=== PATIENT | female | born 1975 | race American Indian/Alaskan Native ===

== ENCOUNTER 2020-07-12 17:16 | Emergency (ER) | payer OTHER ==
[2020-07-12 17:24] VITALS: BP 169/91
[2020-07-12] MEDS ORDERED: dexAMETHasone 20 MG/5 ML VIAL IV ONE (17:30)
[2020-07-12] MEDS ORDERED: HYDROcodone/ACETAMINOPHEN 10-325MG TAB PO ONE (17:30)
--- NOTE | 2020-07-12 18:11 | Emergency Department Report ---
Upper Extremity - [facility] Chief Complaint: Extremity Injury, Upper Stated Complaint: RT SHOULDER/RT ARM PAIN Time Seen by Provider: 07/12/20 17:29 Upper Extremity: Left Shoulder, Left Wrist, Right Shoulder, Right Wrist Occurred When: Today Severity: severe Symptoms: Yes Pain with Movement, No Deformity, No Limited Range of Movement, No Numbness, No Weakness, No Swelling, No Bruising/Ecchymosis, No Laceration or Abrasion Other History: 44-year-old -Beninese female presents to the emergency room complaining of bilateral carpal tunnel wrist pain and bilateral shoulder pain stating that her carpal tunnel is flaring up. Patient states that it started getting worse today. Patient states she has been taking ibuprofen last dose at 11 AM. Patient denies any other past medical history except carpal tunnel syndrome. Patient does report a surgical history of umbilical hernia repair. Patient denies any current medications on a daily basis no known drug allergies. States pain is worse with movement. 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 ED Review of Systems ROS: Stated complaint: RT SHOULDER/RT ARM PAIN Other details as noted in HPI ED Past Medical Hx - Past Medical History Previous Medical History?: Yes Additional medical history: Alfredito carpel tunnel syndrome - Surgical History Past Surgical History?: Yes Additional Surgical History: Umbilical hernia repair - Social History Smoking Status: Never Smoker Substance Use Type: Alcohol - Medications Home Medications: Home Medications Medication Instructions Recorded Confirmed Last Taken Type Ibuprofen [Motrin 800 MG tab] 800 mg PO Q8HR PRN #30 tablet 07/12/20 Unknown Rx predniSONE [Deltasone] 40 mg PO QDAY #10 tab 07/12/20 Unknown Rx Upper Extremity Exam - Exam General: Vital signs noted. No distress. Alert and acting appropriately. Head and Torso: No HEENT Abnormality, No Neck Tenderness, No Chest/Lungs Abnormality, No Abdominal Tenderness, No Back Tenderness Shoulder Exam: Yes Shoulder Tenderness, No Clavicle Tenderness, No Normal Range of Motion in Shoulder, No Shoulder Deformity, No AC Joint Tenderness Arm Exam: No Arm/Humerus Tenderness, No Arm Deformity Elbow: No Elbow Tenderness, No Normal Range of Motion in Elbow, No Elbow Deformity Forearm: Yes Forearm Tenderness, No Forearm Deformity, No Pain with Pronation, No Pain with Supination Wrist: Yes Wrist Tenderness, Yes Normal ROM in Wrist, No Wrist Deformity, No Snuffbox Tenderness, No Pain with Axial Thumb Compression Hand: Yes Hand Tenderness, Yes Normal ROM in Digit(s), No Hand Deformity, No Digit Tenderness, No Digit(s) Deformity CMS Exam: No Broken Skin, No Normal Distal Pulses, No Normal Capillary Refill, No Normal Distal Sensation ED Course Vital Signs 07/12/20 07/12/20 07/12/20 17:21 17:45 17:56 Temperature 98.0 F Pulse Rate 67 Respiratory 20 18 18 Rate Blood Pressure 169/91 O2 Sat by Pulse 100 Oximetry ED Medical Decision Making - Medical Decision Making 44-year-old -Beninese female presents to the emergency room complaining of bilateral carpal tunnel wrist pain and bilateral shoulder pain stating that her carpal tunnel is flaring up. Patient states that it started getting worse today. Patient states she has been taking ibuprofen last dose at 11 AM. Patient denies any other past medical history except carpal tunnel syndrome. Patient does report a surgical history of umbilical hernia repair. Patient denies any current medications on a daily basis no known drug allergies. States pain is worse with movement. 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 But sugar was checked was 96. Patient is given a shot of dexamethasone and a [place] 10/3 25 mg for pain management. Patient will be referred to a hand specialist. Critical care attestation.: If time is entered above; I have spent that time in minutes in the direct care of this critically ill patient, excluding procedure time. ED Disposition Clinical Impression: Shoulder pain, bilateral, Carpal tunnel syndrome on both sides Disposition: DC-01 TO HOME OR SELFCARE Is pt being admited?: No Does the pt Need Aspirin: No Condition: Stable Instructions: Preventing Carpal Tunnel Syndrome, Shoulder Pain, [id number] Additional Instructions: Take steroids as prescribed take pain medication as needed follow-up with a hand specialist. Prescriptions: predniSONE [Deltasone] 40 mg PO QDAY #10 tab Ibuprofen [Motrin 800 MG tab] 800 mg PO Q8HR PRN #30 tablet PRN Reason: Pain , Severe (7-10) Referrals: [facility] [Provider Group] - 3-5 Days Forms: Work/School Release Form(ED)
== END 2020-07-12 19:15 | disposition home or self-care (01) ==
LOC: ED 17:16
DX: G56.03 Carpal tunnel syndrome, bilateral upper limbs (principal); Z79.1 Long term (current) use of non-steroidal anti-inflammatories (NSAID); Z79.899 Other long term (current) drug therapy
CPT/HCPCS: 82962; 96374; 99283; J1100

== ENCOUNTER 2021-03-11 19:30 | Emergency (ER) | payer OTHER ==
[2021-03-11 19:57] VITALS: BP 141/75
[2021-03-11] MEDS ORDERED: KETOROLAC 30 MG/1 ML INJ IM ONE (20:17)
--- NOTE | 2021-03-11 20:20 | Emergency Department Report ---
<EARNEST YLNN - Last Filed: 03/11/21 22:05> ED General Adult HPI - General Chief complaint: Extremity Injury, Lower Stated complaint: FOOT SWOLLEN Time Seen by Provider: 03/11/21 20:04 - Related Data Previous Rx's Medication Instructions Recorded Last Taken Type Ibuprofen [Motrin 800 MG tab] 800 mg PO Q8HR PRN #30 tablet 07/12/20 Unknown Rx predniSONE [Deltasone] 40 mg PO QDAY #10 tab 07/12/20 Unknown Rx Naproxen 500 mg PO BID #20 tablet 03/11/21 Unknown Rx Ondansetron [Zofran Odt] 4 mg PO Q4H #20 tab.rapdis 03/11/21 Unknown Rx oxyCODONE /ACETAMINOPHEN [Percocet 1 tab PO Q4HR #10 tab 03/11/21 Unknown Rx 5/325] Allergies Allergy/AdvReac Type Severity Reaction Status Date / Time No Known Allergies Allergy Unverified 07/12/20 17:21 ED Past Medical Hx - Medications Home Medications: Home Medications Medication Instructions Recorded Confirmed Last Taken Type Ibuprofen [Motrin 800 MG tab] 800 mg PO Q8HR PRN #30 tablet 07/12/20 Unknown Rx predniSONE [Deltasone] 40 mg PO QDAY #10 tab 07/12/20 Unknown Rx Naproxen 500 mg PO BID #20 tablet 03/11/21 Unknown Rx Ondansetron [Zofran Odt] 4 mg PO Q4H #20 tab.rapdis 03/11/21 Unknown Rx oxyCODONE /ACETAMINOPHEN [Percocet 1 tab PO Q4HR #10 tab 03/11/21 Unknown Rx 5/325] ED Course - Consultations Consultation #1: 03/11/21 I did discuss case with Dr. Carbone orthopedics surgeon who reviewed x-rays. Recommends posterior splint and nonweightbearing. Outpatient follow-up advised ED Disposition Clinical Impression: Foot fracture, left Qualifiers: Encounter type: initial encounter Fracture type: closed Qualified Code(s): S92.902A - Unspecified fracture of left foot, initial encounter for closed fracture Disposition: 01 HOME / SELF CARE / HOMELESS Condition: Stable Instructions: Lisfranc Injury, Metatarsal Fracture Additional Instructions: Take Naprosyn twice daily with food as needed for pain. If this medication is not sufficient in controlling your pain, take Percocet with food as directed. Do not drive or operate machinery while taking this medication. Do not consume alcohol taking this medication. Take Zofran as needed for nausea. Wear splint as directed. Use crutches as needed. Keep left foot elevated as often as possible to reduce swelling. Follow-up with Dr. Carbone, orthopedics, this week. Call tomorrow to schedule an appointment. See referral information below. Bring a copy of today's x-ray results with you to your follow-up appointment. Return to the emergency department immediately for new or worsening symptoms. Specifically, return to the emergency department immediately for worsening pain, numbness, tingling, skin color changes, swelling, or any other concerns. Prescriptions: Naproxen 500 mg PO BID #20 tablet oxyCODONE /ACETAMINOPHEN [Percocet 5/325] 1 tab PO Q4HR #10 tab Ondansetron [Zofran Odt] 4 mg PO Q4H #20 tab.rapdis Referrals: JOSIANE CARBONE MD [Staff Physician] - 3-5 Days <NORMAN ELIAS - Last Filed: 03/11/21 22:47> ED General Adult HPI - General Source: patient Mode of arrival: Wheelchair Limitations: No Limitations - History of Present Illness Initial comments: 45-year-old female patient presents to the emergency department with complaints of traumatic left foot pain starting today. Patient states that she was walking through a door when she accidentally tripped over a wooden threshold and "heard her foot crack." Pain is worse with weightbearing. No history of prior injuries to the left foot. No other injuries. Denies paresthesias, numbness, weakness, ankle pain, knee pain, hip pain. Denies other complaints at this time. ED Review of Systems ROS: Stated complaint: FOOT SWOLLEN Other details as noted in HPI Other: CARDIOVASCULAR: Negative for chest pain. PULMONARY: Negative for dyspnea. GASTROINTESTINAL: Negative for abdominal pain. MUSCULOSKELETAL: Positive for foot pain. NEUROLOGICAL: Negative for headache. INTEGUMENTARY: Negative for ecchymosis. ED Past Medical Hx - Past Medical History Previous Medical History?: Yes Additional medical history: Alfredito carpel tunnel syndrome - Surgical History Past Surgical History?: Yes Additional Surgical History: Umbilical hernia repair - Social History Smoking Status: Never Smoker Substance Use Type: Alcohol ED Physical Exam - General Limitations: No Limitations - Other Other exam information: General: Awake, appropriately interactive, no acute distress. Neck: Supple. Full range of motion intact. Cardiovascular: Normal peripheral perfusion. Pulmonary: No respiratory distress. Patient is speaking normally without use of accessory muscles. Skin: No apparent rashes or lesions. Neurological: No facial asymmetry. Speech is clear. Follows commands. Patient is alert and oriented. Musculoskeletal: Diffuse tenderness to palpation across the dorsum of the left foot with significant soft tissue swelling. Painful range of motion in all directions. No plantar ecchymosis. [place] test is negative. No malleolar tenderness. Distal neurovascular and motor/sensory function intact Psych: Cooperative. Appropriate mood and affect. ED Course Vital Signs 03/11/21 19:55 Temperature 97.9 F Pulse Rate 70 Respiratory 18 Rate Blood Pressure 141/75 O2 Sat by Pulse 100 Oximetry ED Medical Decision Making - Radiology Data [facility] [address] [place] [address] XRay Report Signed Patient: SEPIDEH CONROY R#: [id number] : 1975 Acct:[id number] Age/Sex: 45 / F ADM Date: 03/11/21 Loc: ED Attending Dr: Ordering Physician: JODEE DODSON Date of Service: 03/11/21 Procedure(s): XR foot 3+V LT Accession Number(s): [id number] cc: JODEE DODSON Fluoro Time In Minutes: Left foot 3 views INDICATION: Left foot pain following injury IMPRESSION: Multiple fractures identified involving the base of the second toe metatarsal with moderate displacement. There are also fractures identified involving the base of the third and fourth metatarsals. Underlying Lisfranc ligament is injury cannot be excluded. Signer Name: Munir Yoder MD Signed: 03/11/2021 8:43 PM Workstation Name: [id number] Transcribed By: BC Dictated By: Munir Yoder MD Electronically Authenticated By: Munir Yoder MD Signed Date/Time: 03/11/212042 DD/ 41 TD/TT: - Medical Decision Making Differential diagnosis including but not limited to: sprain, strain, fracture, contusion, dislocation, Achilles tendon injury On reevaluation, patient remains stable. Pain is controlled. Repeat neurovascular exam remains intact. X-rays show multiple fractures involving the base of the second toe metatarsal with moderate displacement as well as fractures involving the base of the third and fourth metatarsals. Underlying Lisfranc ligament is injury cannot be excluded. Case discussed with Dr. Carbone, orthopedic surgeon, who recommends application of posterior splint, crutches, analgesics, and close outpatient follow-up. No clinical indication for emergent reduction at this time. Patient will be discharged home with a copy of her imaging results to take with her to her follow-up appointment. Patient expressed understanding and is agreeable to plan of care. RICE precautions discussed. Strict return precautions provided. Case discussed with Dr. Lynn, attending emergency physician, who personally reviewed the patient's imaging and agrees with plan of care. Repeat exam is unremarkable and benign. History, exam, diagnostic testing, and current condition do not suggest worrisome pathology to warrant further testing, continued ED treatment, admission, or surgical evaluation at this point. Given the low probability of a significant medical illness, it would be more likely to result in harm than benefit to perform further testing at this stage. Discussed findings, presumptive diagnosis, need for follow-up and specific signs/symptoms that should prompt immediate return to the emergency department. Instructions were explained in detail to the patient in addition to giving written discharge information. Patient expressed understanding and was given the opportunity to ask questions, all of which were satisfactorily answered prior to discharge home. Critical care attestation.: If time is entered above; I have spent that time in minutes in the direct care of this critically ill patient, excluding procedure time. ED Disposition Is pt being admited?: No Does the pt Need Aspirin: No Time of Disposition: 21:56
--- NOTE | 2021-03-11 20:48 | XRay Report ---
Left foot 3 views INDICATION: Left foot pain following injury IMPRESSION: Multiple fractures identified involving the base of the second toe metatarsal with modera te displacement. There are also fractures identified involving the base of the third and fourth metat arsals. Underlying Lisfranc ligament is injury cannot be excluded. Signer Name: Munir Yoder MD Signed: 03/11/2021 8:43 PM Workstation Name: [id number]
[2021-03-11] MEDS ORDERED: ONDANSETRON 4 MG ODT TAB PO ONE (21:48)
[2021-03-11] MEDS ORDERED: oxyCODONE /ACETAMINOPHEN 5-325MG TAB PO ONE (21:48)
== END 2021-03-11 23:20 | disposition home or self-care (01) ==
LOC: ED 19:30
DX: S92.902A Unspecified fracture of left foot, initial encounter for closed fracture (principal); X58.XXXA Exposure to other specified factors, initial encounter; Y93.89 Activity, other specified; Y92.89 Other specified places as the place of occurrence of the external cause; Y99.8 Other external cause status
CPT/HCPCS: 29515; 73630; 96372; 99283; J1885; Q0162

== ENCOUNTER 2021-03-18 11:49 | Outpatient (CLI) | payer OTHER ==
--- NOTE | 2021-03-18 13:06 | XRay Report ---
LEFT FOOT 3 VIEW(S) INDICATION / CLINICAL INFORMATION: UNSPECIFIED FRACTURE OF LEFT FOOT COMPARISON: None available. FINDINGS: BONES / JOINT(S): Moderately displaced, transverse fracture of the proximal shaft of the 2nd metatars al. There is about 1 shaft width lateral displacement of the distal fracture fragment. Mildly comminu cely, oblique fracture through the base of the 4th metacarpal extending into the tarsometatarsal joint . No definite fracture of the base of the 3rd metatarsal. No significant arthritis. Small type II acc essory medial navicular ossicle. SOFT TISSUES: Moderate soft tissue swelling of the dorsum of the foot overlying the metatarsals. ADDITIONAL FINDINGS: None. IMPRESSION: 1. Fractures of the 2nd and 4th metatarsals. Signer Name: Shima Blair MD Signed: 03/18/2021 1:02 PM Workstation Name: [id number]
== END 2021-03-18 11:50 | disposition home or self-care (01) ==
LOC: XRAY 11:49
PROVIDERS: ATTEND Orthopaedic Surgery
DX: S92.322A Displaced fracture of second metatarsal bone, left foot, initial encounter for closed fracture (principal); S92.342A Displaced fracture of fourth metatarsal bone, left foot, initial encounter for closed fracture; S92.902A Unspecified fracture of left foot, initial encounter for closed fracture; M79.89 Other specified soft tissue disorders; X58.XXXA Exposure to other specified factors, initial encounter; Y93.89 Activity, other specified; Y92.89 Other specified places as the place of occurrence of the external cause; Y99.8 Other external cause status

== ENCOUNTER 2021-04-06 12:23 | Outpatient (CLI) | payer OTHER ==
--- NOTE | 2021-04-06 15:54 | XRay Report ---
LEFT FOOT HISTORY: Fracture, pain. COMPARISON: 03/18/2014, 03/11/2021. TECHNIQUE: 3 views of the left foot were obtained. FINDINGS: Bones: Transverse moderately displaced fracture through the proximal aspect of the second metatarsal. There is 1 shaft width lateral displacement of the distal fracture fragment. This is unchanged. Mild ly comminuted minimally displaced fracture of the base of the fourth metatarsal is unchanged. No defi nite interval callus formation. Joint spaces: Maintained. Soft tissues: No significant abnormality. Additional findings: None. IMPRESSION: No significant change in moderately displaced fracture through the proximal aspect of the left second metatarsal and mildly comminuted minimally displaced fracture at the base of the left fourth metatar pastor.. Signer Name: Indio Mehta MD Signed: 04/06/2021 3:49 PM Workstation Name: [id number]
== END 2021-04-06 12:24 | disposition home or self-care (01) ==
LOC: XRAY 12:23
PROVIDERS: ATTEND Orthopaedic Surgery
DX: S92.342A Displaced fracture of fourth metatarsal bone, left foot, initial encounter for closed fracture (principal); X58.XXXA Exposure to other specified factors, initial encounter; Y93.89 Activity, other specified; Y92.89 Other specified places as the place of occurrence of the external cause; Y99.8 Other external cause status